=== PATIENT | male | born 1955 | race Caucasian/White ===

== ENCOUNTER 2021-03-25 09:24 | Observation (INO) ==
[2021-03-25] MEDS ORDERED: ONDANSETRON INJ 2 MG/ML 2 ML VIAL IV STA (10:10)
[2021-03-25] MEDS ORDERED: ACETAMINOPHEN 1,000 MG/100 ML VIAL IV STA (10:10)
[2021-03-25 10:20] LABS: Basophils # (auto) 0.02 K/uL (0-0.2); Basophils % (auto) 0.1 %; Eosinophils # (auto) 0.01 K/uL (0-0.5); Eosinophils % (auto) 0.1 %; Hemoglobin 16.9 g/dL (14.0-18.0); Immature Granulocytes # (auto) 0.03 K/uL (0.00-0.02); Immature Granulocytes % (auto) 0.2 %; Lymphocytes # (auto) 1.06 K/uL (1.2-3.4); Mean Corpuscular Hemoglobin 33.4 pg (25-34); Mean Corpuscular Volume 92.9 fL (80-100); Mean Platelet Volume 10.4 fL (7.4-10.4); Monocytes # (auto) 1.05 K/uL (0.11-0.59); Neutrophils # (auto) 12.93 K/uL (1.4-6.5); Neutrophils % (auto) 85.6 %; Platelet Count 342 K/uL (130-400); RDW Coefficient of Variation 12.8 % (11.5-14.5); RDW Standard Deviation 43.8 fL (36.4-46.3); Red Blood Count 5.06 M/uL (4.7-6.1)
[2021-03-25 10:37] LABS: Appearance Urine Clear (Clear); Bacteria Urine Automated Negative (Negative); Bilirubin Urine Negative (Negative); Blood Urine Negative (Negative); Cast Urine Automated 0 /lpf (0-5); Color Urine Dark Yellow; Epithelial Cell Urine Auto 0-5 /lpf (0-5); Glucose Urine UA Negative (Negative); Ketones Urine 3+ (Negative); Leukocyte Esterase Urine Negative (Negative); Nitrite Urine Negative (Negative); Protein Urine Trace (Negative); RBC Urine Automated 0-4 /hpf (0-4); Specific Gravity Urine 1.021 (1.000-1.030); Urobilinogen Urine Negative (Negative); WBC Urine Automated 0 /hpf (0-5)
[2021-03-25 10:46] LABS: Albumin Level 4.1 gm/dl (3.4-5.0); BUN Creatinine Ratio 14.7 (10-20); Calcium 9.4 mg/dl (8.5-10.1); Creatinine Clr Calc Pharmacy 84.1 ml/min; Est GFR (African American) 104.2 ml/min; Est GFR (Non-African American) 89.9 ml/min; Globulin 4.1 gm/dl (2.5-4.0); Total Protein 8.2 gm/dl (6.4-8.2)
[2021-03-25 11:00] LABS: Potassium 3.7 mmol/L (3.5-5.1)
[2021-03-25] MEDS ORDERED: OPTIRAY 320 100ml IV ONE (11:11)
--- NOTE | 2021-03-25 11:33 | CT Scan Report ---
CT OF THE ABDOMEN AND PELVIS WITH CONTRAST CLINICAL HISTORY: Right upper quadrant abdominal pain. COMPARISON STUDY: None. TECHNIQUE: Following IV administration of 95 mL of Optiray, axial images of the abdomen and pelvis we re obtained from the lung bases to the proximal femurs. Images were reviewed in the axial, sagittal, and coronal planes. IV contrast was administered without complication. Automated exposure control wa s utilized for the study. A dose lowering technique was utilized adhering to the principles of ALARA . CT DOSE: 385.85 mGy.cm FINDINGS: Left hip arthroplasty is incidentally noted. Mild emphysema is noted within the lung bases. No pneumatosis, free air or portal venous gas is present. The gallbladder is distended. There is mod erate gallbladder wall thickening with pericholecystic fluid. There is associated perihepatic fluid. A 1.7 cm gallstone within the gallbladder neck is noted. There is no biliary or pancreatic ductal dil atation. 1.3 cm right renal cyst is noted. Sensitivity for detection of urinary calculi is diminished given excreted contrast. There is no hydronephrosis. The spleen, adrenal glands and pancreas are unr emarkable. A low-attenuation lobulated focus along the spleen measuring 4.8 x 1.2 cm is indeterminate although probably benign. There is no evidence for a bowel obstruction. The appendix is normal. A mo derate amount stool is noted within the colon. There is no lymphadenopathy. No acute fracture or susp icious lesion is identified within the visualized skeletal structures. IMPRESSION: 1. Findings consistent with acute cholecystitis. Distended gallbladder with moderate gallbladder wall thickening and pericholecystic fluid. 1.7 cm gallstone within the gallbladder neck. No biliary ducta l dilatation. Surgical consultation is recommended. 2. No bowel obstruction. Moderate amount stool within the colon. ACT 112: Negative or not required by law. Electronically signed by: Narayan Hernández M.D. 03/25/2021 11:32 AM
[2021-03-25] MEDS ORDERED: cefOXitin 2,000 MG in DEXTROSE 5% 50 ML IV STA (11:59)
[2021-03-25] MEDS ORDERED: HYDROmorphone INJ 0.5 MG/0.5 ML SYR IV PRN (12:08)
--- NOTE | 2021-03-25 12:54 | History & Physical Report ---
Date of Service March 25, 2021 Assessment & Plan (1) Acute cholecystitis: Plan: Our plan is to proceed with laparoscopic cholecystectomy cholangiogram possible open risk and complication explained to the patient including bleeding infection injury to other organs He has been n.p.o. since last night antibiotics have been administered EKGs ordered Covid test is pending History of Present Illness Chief Complaint: Abdominal pain Primary Care Provider: VALERIA Sophia 65-year-old gentleman inmate experiencing abdominal pain during the night came into the emergency room was evaluated and found to have acute cholecystitis with cholelithiasis He states he never had any issues with eating until he had this pain that may been triggered with some pizza that may be the last night He denies any previous abdominal surgeries he did have a hip replacement He denies any chest pain shortness of breath and other systemic diseases On occasion he did have some high blood pressure years ago was treated Denies any changes in weight Prior to this episode of abdominal pain that developed least evening he never had any issues with any fatty food spicy food or greasy foods Allergies Allergy/AdvReac Type Severity Reaction Status Date / Time No Known Allergies Allergy Verified 03/25/21 11:59 Home Medications Medication Instructions Recorded Confirmed Type aspirin 81 mg tablet,delayed 81 mg PO DAILY 03/25/21 03/25/21 History release (Aspirin Low Dose) chlorthalidone 25 mg tablet 25 mg PO DAILY 03/25/21 03/25/21 History duloxetine 60 mg capsule,delayed 60 mg PO DAILY 03/25/21 03/25/21 History release omeprazole 20 mg capsule,delayed 20 mg PO DAILY 03/25/21 03/25/21 History release rosuvastatin 5 mg tablet (Crestor) 5 mg PO HS 03/25/21 03/25/21 History Past Med/Surg History Social History Smoking Status: Former smoker Preferred Language: Maltese Feels Safe at Home: Yes Physical Exam Physical Exam: Patient is alert coherent when I walked in he was using the urinal to pass his urine Constitutional: WD/WN, vitals as above Eyes: Sclerae nonicteric ENMT: external ear and nose normal, oropharynx normal Neck: trachea midline, no thyromegaly Respiratory: normal respiratory effort, lungs clear to auscultation Gastrointestinal (Abdomen): Abdomen is soft no masses appreciated has significant guarding in the right upper quadrant but no true Salmon sign Results & Data Results & Data ([facility]) Vital Signs (Past 12 Hours) Vital Signs Temp Pulse Resp BP Pulse Ox 03/25/21 09:30 36.6 C 78 18 160/96 H 96 Laboratory Results Lab noted CAT scan was reviewed PG Care Time/CCT Total # of Minutes Spent Total Time Spent with Patient: Total time spent is greater than 50% in coordination of care (as documented) at patient's floor/unit and/or counseling patient: Coding Level of Care Code 79674 Initial Inpt Care Lvl 1 Diagnoses Acute cholecystitis K81.0
[2021-03-25] MEDS ORDERED: LIDOCAINE/EPINEPHRINE 1% 20 ML VIAL ONE (14:40)
[2021-03-25] MEDS ORDERED: LIDOCAINE 2% 2 ML VIAL/AMP(20MG/ML) INFIL ONE (15:18)
[2021-03-25] MEDS ORDERED: PROPOFOL IV EMULSION 10 MG/ML 20 ML VIAL IV ONE ×2 (15:18→16:28)
[2021-03-25] MEDS ORDERED: ONDANSETRON INJ 2 MG/ML 2 ML VIAL ONE (15:18)
[2021-03-25] MEDS ORDERED: DEXAMETHASONE SOD INJ 4 MG/ML VIAL ONE (15:18)
[2021-03-25] MEDS ORDERED: ROCURONIUM BROMIDE 10 MG/ML 5 ML VIAL IV ONE (15:18)
[2021-03-25] MEDS ORDERED: MIDAZOLAM HCL 1 MG/ML 2ML VIAL ONE (15:18)
[2021-03-25] MEDS ORDERED: fentaNYL citrate 100 MCG/2 ML VIAL ONE ×2 (15:18→15:53)
--- NOTE | 2021-03-25 15:27 | Anesthesiology Consultation ---
Date of Service March 25, 2021 Assessment & Plan Chart Review Chart Review: Acceptable Risk for Surgery Consults Requested none History Surgery Operation Date: 03/25/21 09:10 Proposed Procedures p Laparoscopic Cholecystectomy - Madhav Brannon MD, FACS Height/Weight Height: 5 ft 7 in Weight: 80.1 kg Allergies Allergy/AdvReac Type Severity Reaction Status Date / Time No Known Allergies Allergy Verified 03/25/21 11:59 Medications Home Medications Medication Instructions Recorded Confirmed Last Taken aspirin 81 mg tablet,delayed 81 mg PO DAILY 03/25/21 03/25/21 03/24/21 release (Aspirin Low Dose) chlorthalidone 25 mg tablet 25 mg PO DAILY 03/25/21 03/25/21 03/24/21 duloxetine 60 mg capsule,delayed 60 mg PO DAILY 03/25/21 03/25/21 03/24/21 release omeprazole 20 mg capsule,delayed 20 mg PO DAILY 03/25/21 03/25/21 03/24/21 release rosuvastatin 5 mg tablet (Crestor) 5 mg PO HS 03/25/21 03/25/21 03/24/21 NPO Date Last Intake of Fluids: 03/24/21 Time Last Intake of Fluids: 21:00 Date Last Intake of Solids: 03/24/21 Time Last Intake of Solids: 12:00 Past Medical History Medical History (Updated 03/25/21 @ 13:46 by Trace Mcdonough MD) Dyslipidemia GERD (gastroesophageal reflux disease) Hypertension Social History Smoking Status: Former smoker Physical Exam Vital Signs Last Vital Signs Temp 36.7 C 03/25/21 14:48 Pulse 85 03/25/21 14:48 Resp 18 03/25/21 14:48 BP 146/80 H 03/25/21 14:48 Pulse Ox 95 03/25/21 14:48 Testing Laboratory Results 03/25/21 09:43 03/25/21 09:43 Urine Color Dark Yellow 03/25/21 09:43 Urine Appearance Clear (Clear) 03/25/21 09:43 Urine pH 6.0 (4.5-7.5) 03/25/21 09:43 Ur Specific [place] 1.021 (1.000-1.030) 03/25/21 09:43 Urine Protein Trace (Negative) H 03/25/21 09:43 Urine Glucose (UA) Negative (Negative) 03/25/21 09:43 Urine Ketones 3+ (Negative) H 03/25/21 09:43 Urine Nitrite Negative (Negative) 03/25/21 09:43 Ur Leukocyte Esterase Negative (Negative) 03/25/21 09:43 Urine WBC (Auto) 0 /hpf (0-5) 03/25/21 09:43 Urine RBC (Auto) 0-4 /hpf (0-4) 03/25/21 09:43 U Hyaline Cast (Auto) 0 /lpf (0-5) 03/25/21 09:43 U Epithel Cells (Auto) 0-5 /lpf (0-5) 03/25/21 09:43 Urine Bacteria (Auto) Negative (Negative) 03/25/21 09:43
[2021-03-25] MEDS ORDERED: ePHEDrine sulfate 50 MG/ML AMP IV PRN (15:28)
[2021-03-25] MEDS ORDERED: HYDROmorphone INJ 2 MG/ML SYR/VIAL IV PRN (15:28)
[2021-03-25] MEDS ORDERED: fentaNYL citrate 100 MCG/2 ML VIAL IV PRN (15:28)
[2021-03-25] MEDS ORDERED: ATROPINE SULFATE 0.1 MG/ML 10ML SYR IV PRN (15:28)
[2021-03-25] MEDS ORDERED: ONDANSETRON INJ 2 MG/ML 2 ML VIAL IV PRN ×2 (15:28→18:25)
[2021-03-25] MEDS ORDERED: OPTIRAY 300 IV ONE (16:27)
[2021-03-25] MEDS ORDERED: ePHEDrine sulfate 50 MG/ML AMP ONE (16:28)
[2021-03-25] MEDS ORDERED: PHENYLEPHRINE 100MCG/ML 5ML SYR ONE (16:28)
--- NOTE | 2021-03-25 16:55 | Post Operative Brief Note ---
PG Immediate Post Op with CF Date of Surgery March 25, 2021 Pre & Post Diagnosis Operation Date: 03/25/21 09:10 Pre-Op Diagnosis: Cholecystitis Post-Op Diagnosis: Cholecystitis I identified the patient and participated in the time-out.: Yes Procedure Operation Date: 03/25/21 09:10 Actual Procedures p Laparoscopic Cholecystectomy with Cholangiogram(Not Applicable) - Madhav Brannon MD, FACS Surgeon Madhav Brannon MD, FACS College Sports Coach b kolby cabrera Estimated Blood Loss 30 Findings Consistent with Post-Op Diagnosis Specimens Specimen Description: A: Gallbladder and contents Drains Rohit Drain (19 FR; right lower abdomen)
[2021-03-25] MEDS ORDERED: KETOROLAC 30 MG/ML VIAL ONE (16:58)
--- NOTE | 2021-03-25 16:58 | Post Operative Brief Note ---
PG Immediate Post Op with CF Date of Surgery March 25, 2021 Pre & Post Diagnosis Operation Date: 03/25/21 09:10 Pre-Op Diagnosis: Cholecystitis Post-Op Diagnosis: Cholecystitis I identified the patient and participated in the time-out.: Yes Procedure Operation Date: 03/25/21 09:10 Actual Procedures p Laparoscopic Cholecystectomy with Cholangiogram(Not Applicable) - Madhav Brannon MD, FACS Surgeon Madhav Brannon MD, FACS Sand Mill Operator [employer] b kolby cabrera Estimated Blood Loss 30 Findings Consistent with Post-Op Diagnosis Acute cholecystitis hydrops of the gallbladder Specimens Specimen Description: A: Gallbladder and contents Drains Rohit Drain (19 FR; right lower abdomen)
--- NOTE | 2021-03-25 17:08 | Operative Report ---
PG Post Operative Report Pre & Post Diagnosis Operation Date: 03/25/21 09:10 Pre-Op Diagnosis: Cholecystitis Post-Op Diagnosis: Cholecystitis I identified the patient and participated in the time-out.: Yes Procedure Operation Date: 03/25/21 09:10 Actual Procedures p Laparoscopic Cholecystectomy with Cholangiogram(Not Applicable) - Madhav Brannon MD, FACS Patient was brought into the operating theater under general endotracheal anesthesia in the supine position the abdomen was shaved and prepped with Betadine solution properly draped patient had systemic antibiotics on board a timeout was had the patient was identified we made a small incision supraumbilically sufficient for Veress needle followed by CO2 followed by 5 mm trocar point of interest bacteroids identified direct visualization we were able to place a 5 mm epigastric trocar site with preemptive local analgesic remitted a linear incision rather than a transverse incision I usually made just to try away from ruining a large tattoo that the patient had in the epigastric area towards the right upper quadrant we then placed 240 mm trocar similar fashion with preemptive local analgesic the omentum was draped over the liver is removed it then we identified an acutely inflamed gallbladder distended wall thickened we then aspirated it and had clear bowel indicative that I had a hydrops of the gallbladder we deflated sufficiently that the graspers would be able to elevated although was significantly thick-walled omentum was adherent to the pretty much the whole undersurface of the gallbladder with most of it we took out with blunt dissection we worked our way up towards the neck of the gallbladder where acutely we did blunt dissection we can identify the gallbladder neck going underneath the and posterior to probably the manju hepatis we removed and elevated mostly bluntly and identified the takeoff of the cystic duct from the gallbladder appeared to be larger than normal we then clipped approximately 1 to 5 mm clip small opening cystic duct was made #4 urethral catheter transversing abdominal wall was positioned cystic duct serial x-ray were taken which showed a corkscrew small cystic duct free flow into the duodenum I was able to visualize approximately the proximal bifurcation but did not contrast as much as I would like there was a preference for flow going into the distal common bile duct the Cholangiocath was then removed we were able to secure the cystic duct although it was. Larger normally mostly a lot of edema but the actual lumen was small we secured with 5 mm clips we then were able identify the artery as its takeoff clipped it proximally twice once distally and divided we then elevated the gallbladder pretty much by blunt dissection dissected out fairly easily due to the amount of edema the posterior wall and a few areas was quite sclerotic but most of it could be done by blunt dissection we used cautery whenever we had freed that up we left as much is posterior peritoneum was possible that we did have some oozing from that itself most likely due to the acute process. Once we freed the gallbladder from the liver bed we suctioned out underneath and superiorly around it we thought hemostasis was satisfactory although reduced use the little bit and we will eventually drain it with a Rohit drain the ga llbladder was placed in an Endopouch taken out epigastric trocar site although we enlarged the incision sufficiently that we were able to extract this is significantly thick-walled gallbladder. Once this is been performed we then suctioned out again supra hepatically subhepatic lethal hemostasis appear satisfactory with just minimal oozing we placed the camera right upper quadrant port visualize the initial entry into the peritoneal from the umbilical area there were no adhesions identified direct visualization we took out the subcostal ports after we had placed a 19 Rohit drain coming in through the epigastric area taken out lateral laterally to the subcostal port on the right infectious skin edge with 2-0 silk position with some hepatically. The area was then checked hemostasis appear satisfactory close the wound mostly fascial stitch of 2 [id number] in the epigastric trocar site the rest wound was for Monocryl Steri-Strips applied procedure was tolerated well by the patient estimate blood loss 30 cc the patient was taken recovery room in good condition addendum Alyssia cabrera was present throughout the case and helped the retraction exposure and wound closure Surgeon Madhav Brannon MD, FACS Director Of Industrial Relations alyssia cabrera Estimated Blood Loss 30 Findings Consistent with Post-Op Diagnosis Acute cholecystitis with hydrops Specimens gallbladder and contents Drains 19. Rohit drain Description of Procedure merda I attest to the content of the Intraoperative Record and any orders documented therein. Any exceptions are noted below.
--- NOTE | 2021-03-25 17:19 | Fluoroscopy Report ---
INTRAOPERATIVE RADIOGRAPHS CLINICAL HISTORY: Intraoperative cholangiogram. Laparoscopic cholecystectomy. Fluoroscopy time: 4 seconds. FINDINGS: 2 spot fluoroscopic views of the right upper quadrant are presented. The gallbladder is zachary gically absent. There is smooth contrast opacification of the common bile duct. No intraluminal filli ng defects are identified to suggest choledocholithiasis. There is free passage of contrast into the duodenum. IMPRESSION: Intraoperative cholangiogram images as above. Electronically signed by: Jun Robbins M.D. 03/25/2021 5:17 PM
--- NOTE | 2021-03-25 17:51 | Anesthesiology Progress Note ---
Date of Service March 25, 2021 Anesthesia Post Procedure Vital Signs Vital Signs: Temp Pulse Pulse Pulse Resp BP BP 03/25/21 17:45 87 15 155/86 H 03/25/21 17:35 77 16 153/79 H 03/25/21 17:25 94 H 20 157/84 H 03/25/21 17:15 36.7 C 89 14 176/87 H 03/25/21 14:48 36.7 C 85 18 146/80 H 03/25/21 13:30 77 18 154/107 H 03/25/21 13:00 77 18 167/93 H 03/25/21 12:30 77 19 150/106 H 03/25/21 12:00 78 20 160/89 H 03/25/21 11:30 85 19 170/100 H 03/25/21 11:00 85 23 161/90 H 03/25/21 10:30 81 19 166/91 H 03/25/21 10:01 78 24 162/84 H 03/25/21 09:30 36.6 C 78 18 160/96 H Pulse Ox 03/25/21 17:45 94 03/25/21 17:35 99 03/25/21 17:25 96 03/25/21 17:15 98 03/25/21 14:48 95 03/25/21 13:30 94 03/25/21 13:00 95 03/25/21 12:30 93 03/25/21 12:00 97 03/25/21 11:30 95 03/25/21 11:00 94 03/25/21 10:30 95 03/25/21 10:01 95 03/25/21 09:30 96 Transfer of Care Handoff Completed per policy Notes Mental Status: alert / awake / arousable and participated in evaluation Patient Amnestic to Procedure: Yes Nausea / Vomiting: adequately controlled Pain: adequately controlled Airway Patency, RR, SpO2: stable & adequate BP & HR: stable & adequate Hydration State: stable & adequate Anesthetic Complications: no major complications apparent
[2021-03-25] MEDS ORDERED: oxyCODONE/ACETAMINOPHEN 5mg/325mg TAB PO PRN ×2 (18:25)
[2021-03-25] MEDS ORDERED: ACETAMINOPHEN 325 MG TAB PO PRN (18:25)
[2021-03-25] MEDS ORDERED: MoRPHine SULFATE 2 MG/ML CARP IV PRN (18:25)
[2021-03-25] MEDS ORDERED: MoRPHine SULFATE 4 MG/ML 1 ML CARP\\VIAL IV PRN (18:25)
[2021-03-25] MEDS: LACTATED RINGER'S 1,000 ML IV SCH (19:26)
[2021-03-25] MEDS: cefOXitin 2,000 MG in DEXTROSE 5% 50 ML IV SCH (19:40)
[2021-03-25] MEDS ORDERED: ROSUVASTATIN CALCIUM 5 MG TAB PO SCH (21:00)
[2021-03-26] MEDS: cefOXitin 2,000 MG in DEXTROSE 5% 50 ML IV SCH ×2 (00:49→07:53)
--- NOTE | 2021-03-26 07:05 | Electrocardiogram Report ---
Test Reason : Blood Pressure : / mmHG Vent. Rate : 081 BPM Atrial Rate : 081 BPM P-R Int : 130 ms QRS Dur : 080 ms QT Int : 364 ms P-R-T Axes : 063 069 072 degrees QTc Int : 422 ms Normal sinus rhythm Nonspecific ST abnormality Abnormal ECG When compared with ECG of 25-MAR-2021 12:37, Nonspecific T wave abnormality, improved in Anterior leads Confirmed by Edgar Brennan ([id number]) on 03/26/2021 7:04:48 AM Referred By: REFERRED SELF Confirmed By:Edgar Brennan
[2021-03-26 07:13] LABS: Basophils # (auto) 0.01 K/uL (0-0.2); Basophils % (auto) 0.1 %; Hematocrit (blood only) 42.9 % (42-52); Hemoglobin 15.3 g/dL (14.0-18.0); Immature Granulocytes # (auto) 0.05 K/uL (0.00-0.02); Immature Granulocytes % (auto) 0.3 %; Lymphocytes # (auto) 2.39 K/uL (1.2-3.4); Mean Corpuscular Hemoglobin 33.6 pg (25-34); Mean Corpuscular Hgb Conc 35.7 g/dL (32-36); Mean Corpuscular Volume 94.1 fL (80-100); Monocytes # (auto) 0.85 K/uL (0.11-0.59); Monocytes % (auto) 5.7 %; Neutrophils # (auto) 11.61 K/uL (1.4-6.5); Neutrophils % (auto) 77.9 %; Platelet Count 258 K/uL (130-400); RDW Standard Deviation 44.8 fL (36.4-46.3); Red Blood Count 4.56 M/uL (4.7-6.1); White Blood Count 14.91 K/uL (4.8-10.8)
--- NOTE | 2021-03-26 07:51 | Surgery Progress Note ---
Date of Service March 26, 2021 Assessment & Plan (1) Acute cholecystitis: Plan: POD 1 lap tomas seen with Dr. Brannon advance diet cont IV abx medical eval Admission and Anticipated Discharge Date Admission Date: March 25, 2021 Subjective some incisional pain, no N/V Physical Exam Constitutional: WD/WN, vitals as above Gastrointestinal (Abdomen): Inspection/Auscultation: + abdominal surgical incision (clean, dry) Percussion/Palpation: abdomen soft Drain output 45 cc overnight, nonbilious Results & Data ([facility]) Vital Signs (Past 12 Hours) Vital Signs Temp Pulse Pulse Resp BP Pulse Ox 03/26/21 07:42 37.1 C 90 18 130/70 92 03/26/21 03:49 37.0 C 88 18 127/69 92 03/26/21 00:00 79 03/25/21 23:07 36.6 C 89 18 129/72 93 03/25/21 19:55 36.7 C 80 18 133/76 93 PG Care Time/CCT Total # of Minutes Spent Total Time Spent with Patient: Total time spent is greater than 50% in coordination of care (as documented) at patient's floor/unit and/or counseling patient: Coding Level of Care Code None Diagnoses Acute cholecystitis K81.0
[2021-03-26 07:52] LABS: BUN Creatinine Ratio 17.1 (10-20); Calcium 8.5 mg/dl (8.5-10.1); Creatinine Clr Calc Pharmacy 83.1 ml/min; Est GFR (African American) 102.9 ml/min; Est GFR (Non-African American) 88.8 ml/min; Potassium 3.6 mmol/L (3.5-5.1)
--- NOTE | 2021-03-26 08:01 | Hospitalist Consultation ---
Date of Consultation March 26, 2021 Assessment & Plan (1) Acute cholecystitis: Management per surgery. Patient is cleared from a medical point of view for discharge when surgically ready. (2) Acute electrocardiogram changes: Agree with EKG read that he has mild dynamic T wave changes, improved in anterior leads from comparing EKGs yesterday from 12:37 to 15:[address] depressions during surgery. Troponin negative therefore NC ruled out as it has been 12 hours. No history of cardiovascular disease but clearly has risk factors. Continue primary cardiovascular prophylaxis at this time with aspirin, HTN, hyperlipidemia management. No acute need for stress echo unless he is to have chest pain or shortness of breath on exertion. (3) Hyponatremia: I suspect this is somewhat chronic related to his chlorthalidone use. No indication to stop this at current sodium levels but may need to reconsider hypertension medications as outpatient. (4) GERD (gastroesophageal reflux disease): Omeprazole switch to pantoprazole per hospital formulary (5) Dyslipidemia: Continue rosuvastatin 5 mg p.o. at bedtime (6) Hypertension: Continue chlorthalidone 25 mg p.o. daily Thank you for the consult. The patient is medically stable at this time for discharge when surgically cleared. Please contact for further advice if needed. History of Present Illness Reason for Consultation: Pre-op EKG changes Attending Physician: Madhav Brannon MD, FACS History of Present Illness Andi Ledezma is a 65 year old male who presented to the ER yesterday with abdominal pain. He was diagnosed with acute cholecystitis and taken to surgery yesterday by Dr Brannon. He reports doing well since surgery. Medicine consulted for pre-op EKG changes. The patient reports no history of heart attacks or strokes. He reports good exercise tolerance without chest pain or shortness of breath. He takes rosuvastatin for hyperlipidemia and aspirin for primary prophylaxis. Hypertension usually under control with chlorthalidone. Allergies Allergy/AdvReac Type Severity Reaction Status Date / Time No Known Allergies Allergy Verified 03/25/21 11:59 Home Medications Medication Instructions Recorded Confirmed Type aspirin 81 mg tablet,delayed 81 mg PO DAILY 03/25/21 03/25/21 History release (Aspirin Low Dose) chlorthalidone 25 mg tablet 25 mg PO DAILY 03/25/21 03/25/21 History duloxetine 60 mg capsule,delayed 60 mg PO DAILY 03/25/21 03/25/21 History release omeprazole 20 mg capsule,delayed 20 mg PO DAILY 03/25/21 03/25/21 History release rosuvastatin 5 mg tablet (Crestor) 5 mg PO HS 03/25/21 03/25/21 History amoxicillin 875 mg-potassium 1 tab PO BID #5 tab 03/26/21 Rx clavulanate 125 mg tablet (Augmentin) Patient History Medical History (Updated 03/26/21 @ 10:45 by Zack Azar MD) Dyslipidemia GERD (gastroesophageal reflux disease) Hypertension Social History Smoking Status: Current every day smoker Second Hand Exposure: No; Do You Dip or Chew Tobacco: Yes; Tobacco Cessation Education Requested by Patient: No Hx Alcohol Use: Yes Alcohol type: beer, wine and hard liquor Hx Substance Use: No Preferred Language: Romansh Communication Ability: Effective Incident Response Lead Required: No Beliefs That Will Affect Care: None Current Living Situation: Other Current Living Situation Comment: [facility] Other Information That Helps Us Care for You: No Feels Safe at Home: Yes Safety Concerns: Feels Safe At This Time Assistive Devices: None Review of Systems Review of Systems: All systems reviewed & are unremarkable except as noted in HPI & below Physical Exam Constitutional: WD/WN, vitals as above Eyes: + anicteric sclerae; normal pupil size Neck: trachea midline, no thyromegaly Respiratory: normal respiratory effort, lungs clear to auscultation Cardiovascular: RRR, no murmur, no edema Gastrointestinal (Abdomen): Inspection/Auscultation: + abdomen distended and normal bowel sounds Percussion/Palpation: abdomen soft; abdomen nontender, no guarding and abdomen not rigid STANLEY drain with serosanguineous fluid. surgical scar dressing not removed but c/d/i over dressing. Musculoskeletal: no cyanosis or clubbing, extremities motor strength 5/5 Skin: no rashes, warm and dry Neurologic: moves all extremities and awake; not confused Psychiatric: A+Ox3, euthymic affect Results & Data Results & Data ([facility]) Vital Signs (Past 12 Hours) Vital Signs Temp Pulse Pulse Resp BP Pulse Ox 03/26/21 07:42 37.1 C 90 18 130/70 92 03/26/21 03:49 37.0 C 88 18 127/69 92 03/26/21 00:00 79 03/25/21 23:07 36.6 C 89 18 129/72 93 03/25/21 19:55 36.7 C 80 18 133/76 93 ECG Additional Comments: Serial EKGs reviewed with dynamic anterior T wave flattening PG Care Time/CCT Total # of Minutes Spent Total Time Spent with Patient: Total time spent is greater than 50% in coordination of care (as documented) at patient's floor/unit and/or counseling patient: Coding Level of Care Code 76981 Inpt Consult Level 4 Diagnoses Acute electrocardiogram changes R94.31 GERD (gastroesophageal reflux disease) K21.9 Dyslipidemia E78.5 Hypertension I10 Acute cholecystitis K81.0 Hyponatremia E87.1
[2021-03-26] MEDS ORDERED: PANTOprazole 40 MG TAB PO SCH (09:00)
[2021-03-26] MEDS ORDERED: DULoxetine HCL 60 MG CAP PO SCH (09:00)
[2021-03-26] MEDS ORDERED: ASPIRIN 81 MG ECTAB PO SCH (09:00)
[2021-03-26] MEDS ORDERED: CHLORTHALIDONE 25 MG TAB PO SCH (09:00)
[2021-03-26] MEDS: LACTATED RINGER'S 1,000 ML IV SCH (10:07)
[2021-03-26] MEDS ORDERED: SIMETHICONE 80 MG CHEW PO PRN (10:47)
--- NOTE | 2021-03-27 07:24 | Electrocardiogram Report ---
Test Reason : Blood Pressure : / mmHG Vent. Rate : 080 BPM Atrial Rate : 080 BPM P-R Int : 134 ms QRS Dur : 078 ms QT Int : 366 ms P-R-T Axes : 072 076 068 degrees QTc Int : 422 ms Normal sinus rhythm Normal ECG When compared with ECG of 25-MAR-2021 15:19, No significant change was found Confirmed by Jelani Robertson ([id number]) on 03/27/2021 7:23:34 AM Referred By: REFERRED SELF Confirmed By:Inderjit Robertson
--- NOTE | 2021-03-29 19:33 | Emergency Department Note ---
Impression & Plan Acute cholecystitis ED Provider Note NAME: RENO [id number] TAMMIE AGE: 65 SEX: M : 1955 ARRIVES VIA: Ambulance INFORMANT: Patient, ED PROVIDER(S): James Pagan MD CHIEF COMPLAINT: abd pain HPI: This is a 65-year-old male who presents to the emergency department complaining of right upper quadrant abdominal pain. The patient describes the pain as an aching sensation. He reports the pain started approximately 2 hours after eating yesterday. He reports nothing makes the pain better or worse. Patient reports the pain radiates into his back. He has not taken anything for the pain prior to arrival. ROS: See above HPI for pertinent positives & negatives. A total of 10 systems reviewed and were otherwise negative. PAST MEDICAL HISTORY: See Below PAST SURGICAL HISTORY: See Below FAMILY HISTORY: See Below SOCIAL HISTORY: See Below HOME MEDICATIONS: See Below ALLERGIES: See Below VITALS: See Below PHYSICAL EXAMINATION: VITAL SIGNS - Vital signs and nursing notes were reviewed. GENERAL - 65-year-old male appearing stated age who is in no acute distress. Communicates well with provider and answers questions appropriately. SKIN - Without rashes. HEAD - NC/AT. EYES - PERRL with EOMI bilaterally. Sclera anicteric. Palpebral conjunctiva pink and moist with no injection noted. EARS - No deformities of external structures noted on gross examination bilaterally. NOSE - Midline and without cyanosis. No epistaxis or purulent drainage noted. Septum midline without deviation or septal hematoma noted. MOUTH/OROPHARYNX - Without perioral cyanosis. Buccal mucosa pink and moist and without leukoplakia. Tongue midline with equal elevation of palate bilaterally. No tonsillar hypertrophy, erythema, or exudates noted. NECK - Neck with FROM. Supple to palpation. LUNGS - Chest wall symmetric without accessory muscle use, intercostals retractions, or central cyanosis. Normal vesicular breath sounds CTA B/L. No wheezes, rales, or rhonchi appreciated. CARDIAC - RRR with S1/S2. No murmur, rubs, or gallops appreciated. ABDOMEN - Abdominal contour without pulsations or visible masses. BS normoactive all four quadrants. tender RUQ abd pain EXTREMITIES - No clubbing or peripheral cyanosis. No pretibial edema present. +3/5 radial, posterior tibial, and dorsalis pedis pulses palpated throughout. +5/5 strength noted in UE/LE bilaterally. NEUROLOGIC - Cranial nerves II through XII grossly intact. Sensory intact to light touch throughout. Patellar reflexes +2/4. PSYCH - A&Ox3 and cooperates fully with examiner. Pt is very pleasant and interacts well with examiner. MEDICAL DECISION MAKING: Patient was seen and evaluated as above in room A3. Review was performed of nursing notes and vital signs. I did review pertinent previous visits and patien t history. After obtaining a thorough history and physical examination the above work up was performed. This is a [employer] downtime chart This 65-year-old male who presents emergency department complaining of abdominal pain. Using shared medical decision making with the patient he was sent for CAT scan of the abdomen pelvis. CAT scan was reviewed and interpreted by me as concerning for acute cholecystitis. In addition the patient also has an elevation his white blood cell count of 14.9. He has normal liver enzymes. The patient was started on IV Mefoxin here in the emergency department. I did discuss the case with the general surgeon who did agree to admit the patient. The patient was given IV acetaminophen as well as Dilaudid here in the emergency department. Repeat examination revealed improvement the patient's symptoms. An order was placed for continuous cardiac monitoring. The monitor shows a rate of 89 with Normal Sinus rhythm. The patient was evaluated during a period of high volume and high acuity during the global COVID-19 pandemic, and that diagnosis was suspected/considered upon their initial presentation. Their evaluation, treatment and testing was co nsistent with current guidelines for patients who present with complaints or symptoms that may be related to COVID-19. Patient was seen while provider was wearing PPE. Triage Nursing notes reviewed. Prior medical records reviewed Vital Signs: reviewed and remarkable for no significant abnormalities Differential diagnosis: Appendicitis, testicular torsion, infections, diverticulitis, UTI, obstruction, mesenteric ischemia, aortic pathology, inflammatory bowel disease, renal colic, PUD, pancreatitis, biliary pathology, hernia, volvulus, constipation, as well as other pathologies. ER treatment provided: See below Diagnostics interpreted by me: ECG: EKG shows a normal sinus rhythm no ST elevation or depression QTC is 426 ventricular rate is 80 no previous EKG to compare to Laboratory studies: As stated above and show below. Imaging studies: See below Consultation(s): Gen Surgery Past Med/Surg History Medical History (Updated 03/29/21 @ 19:40 by James Pagan MD) Dyslipidemia GERD (gastroesophageal reflux disease) Hypertension Social History Smoking Status: Current every day smoker Second Hand Exposure: No; Hx Alcohol Use: Yes Alcohol type: beer, wine and hard liquor Hx Substance Use: No Preferred Language: Yakut Communication Ability: Effective Power Tong Operator Required: No Beliefs That Will Affect Care: None Current Living Situation: Other Current Living Situation Comment: [facility] Feels Safe at Home: Yes Assistive Devices: None Allergies Allergies Allergy/AdvReac Type Severity Reaction Status Date / Time No Known Allergies Allergy Verified 03/25/21 11:59 Home Meds Home Medications Medication Instructions Recorded Confirmed aspirin 81 mg tablet,delayed 81 mg PO DAILY 03/25/21 03/25/21 release (Aspirin Low Dose) chlorthalidone 25 mg tablet 25 mg PO DAILY 03/25/21 03/25/21 duloxetine 60 mg capsule,delayed 60 mg PO DAILY 03/25/21 03/25/21 release omeprazole 20 mg capsule,delayed 20 mg PO DAILY 03/25/21 03/25/21 release rosuvastatin 5 mg tablet (Crestor) 5 mg PO HS 03/25/21 03/25/21 Previous Rx's Medication Instructions Recorded amoxicillin 875 mg-potassium 1 tab PO BID #5 tab 03/26/21 clavulanate 125 mg tablet (Augmentin) Results & Data (ED) Home Medications Current Medication List: was personally reviewed by me Laboratory Data Attestation: I reviewed the patient's lab results. Result diagrams: 03/26/21 06:48 03/26/21 06:48 Lab Results 03/25/21 03/25/21 03/25/21 Range/Units 09:43 09:43 09:43 WBC 15.10 H (4.8-10.8) K/uL RBC 5.06 (4.7-6.1) M/uL Hgb 16.9 (14.0-18.0) g/dL Hct 47.0 (42-52) % MCV 92.9 (80-100) fL MCH 33.4 (25-34) pg MCHC 36.0 (32-36) g/dL RDW Std Deviation 43.8 (36.4-46.3) fL RDW Coeff of Eladio 12.8 (11.5-14.5) % Plt Count 342 (130-400) K/uL MPV 10.4 (7.4-10.4) fL Immature Gran % (Auto) 0.2 % Neut % (Auto) 85.6 % Lymph % (Auto) 7.0 % Kane % (Auto) 7.0 % Eos % (Auto) 0.1 % Baso % (Auto) 0.1 % Neut # (Auto) 12.93 H (1.4-6.5) K/uL Lymph # (Auto) 1.06 L (1.2-3.4) K/uL Kane # (Auto) 1.05 H (0.11-0.59) K/uL Eos # (Auto) 0.01 (0-0.5) K/uL Baso # (Auto) 0.02 (0-0.2) K/uL Immature Gran # (Auto) 0.03 H (0.00-0.02) K/uL Sodium 133 L (136-145) mmol/L Potassium 3.7 (3.5-5.1) mmol/L Chloride 97 L (98-107) mmol/L Carbon Dioxide 27 (21-32) mmol/L Anion Gap 9.0 (3-11) BUN 13 (7-18) mg/dl Creatinine 0.90 (0.6-1.4) mg/dl Est Cr Clr Drug Dosing 84.1 ml/min Est GFR ( Amer) 104.2 ml/min Est GFR (Non-Af Amer) 89.9 ml/min BUN/Creatinine Ratio 14.7 (10-20) Glucose 142 H (70-99) mg/dl Calcium 9.4 (8.5-10.1) mg/dl Total Bilirubin 1.0 (0.2-1) mg/dl AST 19 (15-37) U/L ALT 30 (12-78) U/L Alkaline Phosphatase 90 (45-117) U/L Troponin I (0-0.045) ng/ml Total Protein 8.2 (6.4-8.2) gm/dl Albumin 4.1 (3.4-5.0) gm/dl Globulin 4.1 H (2.5-4.0) gm/dl Albumin/Globulin Ratio 1.0 (0.9-2) Lipase 89 (73-393) U/L Urine Color Dark Yellow Urine Appearance Clear (Clear) Urine pH 6.0 (4.5-7.5) Ur Specific [place] 1.021 (1.000-1.030) Urine Protein Trace H (Negative) Urine Glucose (UA) Negative (Negative) Urine Ketones 3+ H (Negative) Urine Blood Negative (Negative) Urine Nitrite Negative (Negative) Urine Bilirubin Negative (Negative) Urine Urobilinogen Negative (Negative) Ur Leukocyte Esterase Negative (Negative) Urine WBC (Auto) 0 (0-5) /hpf Urine RBC (Auto) 0-4 (0-4) /hpf U Hyaline Cast (Auto) 0 (0-5) /lpf U Epithel Cells (Auto) 0-5 (0-5) /lpf Urine Bacteria (Auto) Negative (Negative) COVID-19 Eval Order SARS-CoV-2 (PCR) (Negative) 03/25/21 03/25/21 03/25/21 Range/Units 09:43 12:40 12:40 WBC (4.8-10.8) K/uL RBC (4.7-6.1) M/uL Hgb (14.0-18.0) g/dL Hct (42-52) % MCV (80-100) fL MCH (25-34) pg MCHC (32-36) g/dL RDW Std Deviation (36.4-46.3) fL RDW Coeff of Eladio (11.5-14.5) % Plt Count (130-400) K/uL MPV (7.4-10.4) fL Immature Gran % (Auto) % Neut % (Auto) % Lymph % (Auto) % Kane % (Auto) % Eos % (Auto) % Baso % (Auto) % Neut # (Auto) (1.4-6.5) K/uL Lymph # (Auto) (1.2-3.4) K/uL Kane # (Auto) (0.11-0.59) K/uL Eos # (Auto) (0-0.5) K/uL Baso # (Auto) (0-0.2) K/uL Immature Gran # (Auto) (0.00-0.02) K/uL Sodium (136-145) mmol/L Potassium (3.5-5.1) mmol/L Chloride (98-107) mmol/L Carbon Dioxide (21-32) mmol/L Anion Gap (3-11) BUN (7-18) mg/dl Creatinine (0.6-1.4) mg/dl Est Cr Clr Drug Dosing ml/min Est GFR ( Amer) ml/min Est GFR (Non-Af Amer) ml/min BUN/Creatinine Ratio (10-20) Glucose (70-99) mg/dl Calcium (8.5-10.1) mg/dl Total Bilirubin (0.2-1) mg/dl AST (15-37) U/L ALT (12-78) U/L Alkaline Phosphatase (45-117) U/L Troponin I < 0.015 (0-0.045) ng/ml Total Protein (6.4-8.2) gm/dl Albumin (3.4-5.0) gm/dl Globulin (2.5-4.0) gm/dl Albumin/Globulin Ratio (0.9-2) Lipase (73-393) U/L Urine Color Urine Appearance (Clear) Urine pH (4.5-7.5) Ur Specific [place] (1.000-1.030) Urine Protein (Negative) Urine Glucose (UA) (Negative) Urine Ketones (Negative) Urine Blood (Negative) Urine Nitrite (Negative) Urine Bilirubin (Negative) Urine Urobilinogen (Negative) Ur Leukocyte Esterase (Negative) Urine WBC (Auto) (0-5) /hpf Urine RBC (Auto) (0-4) /hpf U Hyaline Cast (Auto) (0-5) /lpf U Epithel Cells (Auto) (0-5) /lpf Urine Bacteria (Auto) (Negative) COVID-19 Eval Order Covid19 at [facility] SARS-CoV-2 (PCR) NEGATIVE (Negative) Administered Medications Discontinued Medications Aspirin (Aspirin 81 Mg Ectab) 81 mg PO DAILY DAYANARA Stop: 04/25/21 08:59 Last Admin: 03/26/21 07:55 Dose: 81 mg Documented by: [id number] Chlorthalidone (Chlorthalidone 25 Mg Tab) 25 mg PO DAILY DAYANARA Stop: 04/25/21 08:59 Last Admin: 03/26/21 07:55 Dose: 25 mg Documented by: [id number] Duloxetine HCl (Duloxetine Hcl 60 Mg Cap) 60 mg PO DAILY DAYANARA Stop: 04/25/21 08:59 Last Admin: 03/26/21 07:55 Dose: 60 mg Documented by: [id number] Acetaminophen (Ofirmev) 1,000 mg in 100 mls @ 400 mls/hr IV NOW STA Stop: 03/25/21 10:24 Last Infusion: 03/25/21 12:00 Dose: 0 mls/hr Documented by: [id number] Admin: 03/25/21 11:45 Dose: 400 mls/hr Documented by: [id number] Cefoxitin Sodium 2,000 mg/ (Dextrose) 60 mls @ 120 mls/hr IV NOW STA Stop: 03/25/21 12:28 Last Infusion: 03/25/21 13:28 Dose: 0 mls/hr Documented by: [id number] Admin: 03/25/21 12:54 Dose: 120 mls/hr Documented by: [id number] Lactated Ringer's (Lr) 1,000 mls @ 75 mls/hr IV .[id number] DAYANARA Stop: 04/24/21 18:24 Last Admin: 03/26/21 10:07 Dose: 75 mls/hr Documented by: [id number] Infusion: 03/26/21 09:24 Dose: 75 mls/hr Documented by: [id number] Infusion: 03/25/21 20:18 Dose: 75 mls/hr Documented by: [id number] Infusion: 03/25/21 19:40 Dose: 0 mls/hr Documented by: [id number] Admin: 03/25/21 19:26 Dose: 75 mls/hr Documented by: [id number] Cefoxitin Sodium 2,000 mg/ (Dextrose) 60 mls @ 100 mls/hr IV Q6H DAYANARA Stop: 04/04/21 18:59 Last Infusion: 03/26/21 10:08 Dose: 0 mls/hr Documented by: [id number] Admin: 03/26/21 07:53 Dose: 50 mls/hr Documented by: [id number] Infusion: 03/26/21 05:22 Dose: 0 mls/hr Documented by: [id number] Admin: 03/26/21 00:49 Dose: 100 mls/hr Documented by: [id number] Infusion: 03/25/21 20:16 Dose: 0 mls/hr Documented by: [id number] Admin: 03/25/21 19:40 Dose: 100 mls/hr Documented by: [id number] Ioversol (Optiray 320 100ml) 95 ml IV ONCE ONE Stop: 03/25/21 11:12 Last Admin: 03/25/21 11:12 Dose: 95 ml Documented by: [id number] Ioversol (Optiray 300) 50 ml IV ONCE ONE Stop: 03/25/21 16:28 Last Admin: 03/25/21 16:43 Dose: 17 ml Documented by: [id number] Lidocaine/Epinephrine (Lidocaine/Epinephrine 1% 20 Ml Vial) Confirm Administered Dose 20 ml .ROUTE .STK-MED ONE Stop: 03/25/21 14:41 Last Admin: 03/25/21 16:58 Dose: 20 ml Documented by: [id number] Ondansetron HCl (Ondansetron Inj 2 Mg/Ml 2 Ml Vial) 4 mg IV NOW STA Stop: 03/25/21 10:11 Last Admin: 03/25/21 11:45 Dose: 4 mg Documented by: [id number] Pantoprazole Sodium (Pantoprazole 40 Mg Tab) 40 mg PO QAM DAYANARA Stop: 04/25/21 08:59 Last Admin: 03/26/21 07:55 Dose: 40 mg Documented by: [id number] Rosuvastatin Calcium (Rosuvastatin Calcium 5 Mg Tab) 5 mg PO HS DAYANARA Stop: 04/24/21 20:59 Last Admin: 03/25/21 19:26 Dose: 5 mg Documented by: [id number] Simethicone (Simethicone 80 Mg Chew) 80 mg PO Q6H PRN PRN Reason: Bloating Stop: 04/25/21 10:46 Last Admin: 03/26/21 11:47 Dose: 80 mg Documented by: [id number] Imaging Data Radiologist's Impression: Cholangiogram,Operative 03/25/21 00:00 INTRAOPERATIVE RADIOGRAPHS CLINICAL HISTORY: Intraoperative cholangiogram. Laparoscopic cholecystectomy. Fluoroscopy time: 4 seconds. FINDINGS: 2 spot fluoroscopic views of the right upper quadrant are presented. The gallbladder is surgically absent. There is smooth contrast opacification of the common bile duct. No intraluminal filling defects are identified to suggest choledocholithiasis. There is free passage of contrast into the duodenum. IMPRESSION: Intraoperative cholangiogram images as above. Electronically signed by: Jun Robbins M.D. 03/25/2021 5:17 PM Abdomen/Pelvis CT 03/25/21 10:10 CT OF THE ABDOMEN AND PELVIS WITH CONTRAST CLINICAL HISTORY: Right upper quadrant abdominal pain. COMPARISON STUDY: None. TECHNIQUE: Following IV administration of 95 mL of Optiray, axial images of the abdomen and pelvis were obtained from the lung bases to the proximal femurs. Images were reviewed in the axial, sagittal, and coronal planes. IV contrast was administered without complication. Automated exposure control was utilized for the study. A dose lowering technique was utilized adhering to the principles of ALARA. CT DOSE: 385.85 mGy.cm FINDINGS: Left hip arthroplasty is incidentally noted. Mild emphysema is noted within the lung bases. No pneumatosis, free air or portal venous gas is present. The gallbladder is distended. There is moderate gallbladder wall thickening with pericholecystic fluid. There is associated perihepatic fluid. A 1.7 cm gallstone within the gallbladder neck is noted. There is no biliary or pancreatic ductal dilatation. 1.3 cm right renal cyst is noted. Sensitivity for detection of urinary calculi is diminished given excreted contrast. There is no hydronephrosis. The spleen, adrenal glands and pancreas are unremarkable. A low- attenuation lobulated focus along the spleen measuring 4.8 x 1.2 cm is indeterminate although probably benign. There is no evidence for a bowel obstruction. The appendix is normal. A moderate amount stool is noted within the colon. There is no lymphadenopathy. No acute fracture or suspicious lesion is identified within the visualized skeletal structures. IMPRESSION: 1. Findings consistent with acute cholecystitis. Distended gallbladder with moderate gallbladder wall thickening and pericholecystic fluid. 1.7 cm gallstone within the gallbladder neck. No biliary ductal dilatation. Surgical consultation is recommended. 2. No bowel obstruction. Moderate amount stool within the colon. ACT 112: Negative or not required by law. Electronically signed by: Narayan Hernández M.D. 03/25/2021 11:32 AM Discharge Plan Visit Data Chief Complaint: Abdominal Pain ED Provider: James Pagan Discharge Problem: Acute cholecystitis Patient Disposition: Admitted As Inpatient Discharge Instructions Interventions: ED Discharge Assessment Last Done: 03/25/21 14:37
== END 2021-03-26 13:00 ==
LOC: ED 09:24 → 2S 14:54 → OR 14:54